=== PATIENT | male | born 1960 | race Caucasian/White ===

== ENCOUNTER 2017-05-29 18:23 | Emergency (ER) | payer OTHER ==
[~2017-05-29] VITALS: Ht 170.2 cm; Wt 68.0 kg
[~2017-05-29 18:23] MED LIST: ATOR20TA PO; CLON0.5T3 PO; LEVO112T2 PO; LORA-434 PO; LOSA25TA4 PO; TRAM50TA PO
[2017-05-29 18:35] VITALS: BP 195/96
--- NOTE | 2017-05-29 18:47 | PHYS DOC ---
Past Medical History Past Medical History: Anxiety, High Cholesterol, Hypertension, Hypothyroid Past Surgical History: Other Additional Past Surgical Histo: LT KNEE Alcohol Use: Heavy Drug Use: None Adult General Chief Complaint Chief Complaint: HAND PROBLEM HPI HPI Patient is a 56 year old male presents to the ED complaining of right hand cut 4 days. States he was cleaning out the garbage disposal and had a small cut on his right hand. States since then he has noted a line moving up his arm and increasing redness around the cut. Denies fever, nausea/vomiting, dizziness, weakness, chest pain or shortness of breath. Review of Systems Review of Systems Constitutional: Denies fever or chills [] Eyes: Denies change in visual acuity, redness, or eye pain [] HENT: Denies nasal congestion or sore throat [] Respiratory: Denies cough or shortness of breath [] Cardiovascular: No additional information not addressed in HPI [] GI: Denies abdominal pain, nausea, vomiting, bloody stools or diarrhea [] : Denies dysuria or hematuria [] Musculoskeletal: Denies back pain or joint pain [] Integument: Denies rash or skin lesions [] Neurologic: Denies headache, focal weakness or sensory changes [] Endocrine: Denies polyuria or polydipsia [] Current Medications Current Medications Current Medications Medications (Trade) Dose Ordered Sig/Daljit Start Time Stop Time Status Last Admin Dose Admin Tetanus/ Diphtheria Toxoids (Tenivac Syringe) 0.5 ml ONCE ONCE 05/29/17 19:00 05/29/17 19:01 DC 05/29/17 19:04 0.5 ML Allergies Allergies Allergies Coded Allergies Type Severity Reaction Last Updated Verified No Known Drug Allergies 02/26/15 No Physical Exam Physical Exam Constitutional: Well developed, well nourished, no acute distress, non-toxic appearance. [] HENT: Normocephalic, atraumatic, bilateral external ears normal, oropharynx moist, no oral exudates, nose normal. [] Eyes: PERRLA, EOMI, conjunctiva normal, no discharge. [] Neck: Normal range of motion, no tenderness, supple, no stridor. [] Cardiovascular:Heart rate regular rhythm, no murmur [] Lungs & Thorax: Bilateral breath sounds clear to auscultation [] Abdomen: Bowel sounds normal, soft, no tenderness, no masses, no pulsatile masses. [] Skin: Warm, dry, no rash. SMALL PUNCTURE WOUND TO RIGHT DORSAL HAND WITH SURROUNDING ERYTHEMA AND RED STREAKING TO ABOUT MID-FOREARM. [] Back: No tenderness, no CVA tenderness. [] Extremities: No tenderness, no cyanosis, no clubbing, ROM intact, no edema. [] Neurologic: Alert and oriented X 3, normal motor function, normal sensory function, no focal deficits noted. [] Psychologic: Affect normal, judgement normal, mood normal. [] Current Patient Data Vital Signs Vital Signs Date Time Temp Pulse Resp B/P (MAP) Pulse Ox O2 Delivery O2 Flow Rate FiO2 05/29/17 18:35 98.6 94 20 98 Room Air 98.6 EKG EKG [] Radiology/Procedures Radiology/Procedures [] Course & Med Decision Making Course & Med Decision Making Pertinent Labs and Imaging studies reviewed. (See chart for details) []Tetanus updated. Full range of motion of hand. Neurovascular intact. Mild cellulitis. Will treat with Bactrim and Keflex outpatient. Discussed follow-up in 1-2 days. Provided contact information/education. Discussed reasons to return to the ED sooner. Patient understands and agrees with plan. Dragon Disclaimer Dragon Disclaimer This electronic medical record was generated, in whole or in part, using a voice recognition dictation system. Departure Departure Impression: Primary Impression: Cellulitis Disposition: 01 HOME, SELF-CARE Condition: STABLE Referrals: BLANCA BECKHAM (PCP) Patient Instructions: Cellulitis Scripts Cephalexin (KEFLEX) 500 Mg Capsule 1 CAP PO TID, #21 CAP Prov: MEKA WALTER 05/29/17 Sulfamethoxazole/Trimethoprim (BACTRIM DS TABLET) 1 Each Tablet 1 TAB PO BID, #20 TAB Prov: MEKA WALTER 05/29/17 MEKA WALTER May 29, 2017 18:47
[2017-05-29] MEDS ORDERED: SULF1TAB24 PO (18:53)
[2017-05-29] MEDS ORDERED: CEPH-264 PO (18:53)
[2017-05-29] MEDS ORDERED: TETANUS AND DIPHTHERIA TOX/PF 0.5 ML DISP.SYRIN. VAX IM ONE (19:00)
== END 2017-05-29 19:06 | disposition home or self-care (01) ==
LOC: ER 18:23
DX: L03.113 Cellulitis of right upper limb (principal); F41.9 Anxiety disorder, unspecified; E78.00 Pure hypercholesterolemia, unspecified; E03.9 Hypothyroidism, unspecified; I10 Essential (primary) hypertension
CPT/HCPCS: 90471; 90714; 99283-25